=== PATIENT | female | born 1990 | race Caucasian/White ===

== ENCOUNTER 2018-04-03 15:25 | Emergency (ER) | payer OTHER ==
[2018-04-03 16:24] VITALS: BP 119/78
--- NOTE | 2018-04-03 16:56 | UC ---
Upper Extremity HPI - HPI Summary HPI Summary: Patient's 21 sexual female who presents with 2 months progressive left upper sternal he paresthesias. Patient states she first noticed at the gym when she was holding weight that her left middle ring and small finger with surgical team. Patient states progressively she's been having the symptoms. Patient denies fevers or chills. 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 Patient denies any weakness of the hand but states she has discomfort related to the numbing sharp tingling. Patient denies any elbow pain and no shoulder pain no changes in temperature or color to the hand. Patient intermittently takes ibuprofen which seems to help short-term. Patient has not seen any providers for these symptoms Pt's medications reviewed this visit - History of Current Complaint Chief Complaint: UCUpperExtremity Stated Complaint: LEFT FOREARM AND WRIST PAIN Time Seen by Provider: 04/03/18 16:30 Hx Obtained From: Patient Hx Last Menstrual Period: 05/06/15 Onset/Duration: Gradual Onset Severity Initially: Mild Severity Currently: Mild Pain Intensity: 2 Pain Scale Used: 0-10 Numeric - Allergies/Home Medications Allergies/Adverse Reactions: Allergies Allergy/AdvReac Type Severity Reaction Status Date / Time No Known Allergies Allergy Verified 04/03/18 16:17 Home Medications: Home Medications Levonorgestrel (Iud) [Mirena IUD] 1 dose INTRAUTERI ONCE 04/03/18 [History Confirmed 04/03/18] PMH/Surg Hx/FS Hx/Imm Hx Previously Healthy: Yes - Surgical History Surgical History: Yes Surgery Procedure, Year, and Place: appendix. T&A. [place] teeth. C-sectionx2 - Family History Known Family History: Positive: Non-Contributory - Social History Occupation: Employed Full-time Lives: With Family Alcohol Use: Rare Substance Use Type: None Smoking Status (MU): Never Smoked Tobacco - Immunization History Most Recent Influenza Vaccination: Fall 2014 Review of Systems All Other Systems Reviewed And Are Negative: Yes Skin: Positive: Negative Neurovascular: Positive: Other - paresthesia left hand and forearm Physical Exam - Summary Physical Exam Summary: Vital Signs Reviewed: Yes A+Ox3, no distress Eyes: Conjunctiva Clear ENT: Hearing grossly normal neck: supple Respiratory: Positive: No respiratory distress, No accessory muscle use Cardiovascular: skin color reflect adequate perfusion 2+ radial, ulnar CBT < 2 sec all digits Musculoskeletal Exam: BARROSO x 4 without difficulty + full flex/ext elbow with increase sx with flexions + pronate/supinate with increased pain with pronate + pain increases with palpation of olecrenon, no atrophy Neurological: Positive: Alert, ambulatory without difficulty + thumb up, a ok, finger cross finger spread + 5/5/ grasp Psychological: Positive: Normal Response To Family Skin: Positive: no rash, no ecchymosis Triage Information Reviewed: Yes Vital Signs: Initial Vital Signs Temp 97.7 F 04/03/18 16:19 Pulse 77 04/03/18 16:19 Resp 15 04/03/18 16:19 BP 119/78 04/03/18 16:19 Pulse Ox 100 04/03/18 16:19 Upper Extremity Course/Dx - Course Course Of Treatment: Patient presents with progressive paresthesias of her left forearm and to her left middle, ring, 5th finger patient's CSM intact. Suspect is related to pulmonary irritation and not median. Will place patient in her wrist because she states her wrist seems to be get stiff and sore. We'll refer to orthopedics. Motrin Tylenol. Patient declined all 4. Patient comfortable in agreement with plan. - Differential Dx/Diagnosis Provider Diagnoses: paresthesia ulnar distribution left hand Discharge - Sign-Out/Discharge Documenting (check all that apply): Patient Departure All imaging exams completed and their final reports reviewed: No Studies - Discharge Plan Condition: Stable Disposition: HOME Patient Education Materials: Cubital Tunnel Syndrome (ED), Paresthesia (ED) Referrals: Porsha Villanueva MD [Primary Care Provider] - Javier Smith MD [Medical Doctor] - Additional Instructions: The doctor that evaluated today thinks that her symptoms are related to irritation of the ulnar nerve which most likely occurs in the elbow area you were placed in a wrist splint today to offer support as you reported some discomfort there. It is recommended that you wear splint as much as possible for comfort and support. Follow-up with the orthopedic doctor as directed. Call tomorrow for an appointment. Okay to take ibuprofen and Tylenol every 3 hours for pain. Avoid further trauma to the area. If he develops redness, fever, weakness, or any other concerns is recommended to the emergency department for further evaluation - Billing Disposition and Condition Condition: STABLE Disposition: Home
== END 2018-04-03 17:05 | disposition home or self-care (01) ==
LOC: UCCORT 15:25
DX: R20.2 Paresthesia of skin (principal); M25.539 Pain in unspecified wrist; M79.632 Pain in left forearm
CPT/HCPCS: 99212; G0463